=== PATIENT | female | born 2000 | race Caucasian/White ===

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

== ENCOUNTER 2018-06-30 11:55 | Outpatient (CLI) | END 2018-06-30 11:56 | disposition home or self-care (01) | LOC: RHC-LAB 11:55 | PROVIDERS: ATTEND Nurse Practitioner Family | DX: R32 Unspecified urinary incontinence (principal); Z86.2 Personal history of diseases of the blood and blood-forming organs and certain disorders involving the immune mechanism | CPT/HCPCS: 36415; 80053; 85027 ==